=== PATIENT | male | born 1995 | race Caucasian/White ===

== ENCOUNTER 2020-02-10 19:36 | Emergency (ER) | payer BC, SELFPAY ==
[2020-02-10 19:37] VITALS: BP 119/82; PULSE 84; RESP 16; TEMP 36.7; O2SAT 100
--- NOTE | 2020-02-10 19:58 | ED.GENADULT ---
HPI - General Adult General Chief complaint: Unspecified Stated complaint: Bug in Ear Time Seen by Provider: 02/10/20 19:58 History of Present Illness HPI narrative: Patient is a 25-year-old male who was outside grilling when a bug flew into his ear. Sudden onset pain. Feels like it is flapping his ear. Mild difficulty hearing due to this. Related Data Allergies Allergy/AdvReac Type Severity Reaction Status Date / Time No Known Allergies Allergy Unverified 08/07/17 19:35 Review of Systems ENT: Denies dizziness Comments: Right ear pain and muffled hearing. [facility] Past Medical History Medical History (Updated 02/10/20 @ 20:01 by Tesfaye Rodriguez MD) Healthy adult male Surgical History Surgical History (Updated 02/10/20 @ 19:59 by Tesfaye Rodriguez MD) No history of previous surgery Exam Narrative: Exam Narrative: GENERAL: Well-appearing, well-nourished, and in no acute distress. HEAD: Normocephalic, atraumatic. ENT: Normal left TM with small amount of cerumen in the ear canal. Right ear canal with a insect in the middle of it. After removal eardrum is erythematous and irritated but not perforated. Ear canal free of cerumen. NEURO: Alert and oriented x3. PSYCH: Normal mood and affect. Course Vital Signs Vital signs: Vital Signs Temperature 98.1 F 02/10/20 19:37 Pulse Rate 84 02/10/20 19:37 Respiratory Rate 16 02/10/20 19:37 Blood Pressure 119/82 02/10/20 19:37 Pulse Oximetry 100 02/10/20 19:37 Temperature 98.1 F 02/10/20 19:37 Pulse Rate 84 02/10/20 19:37 Respiratory Rate 16 02/10/20 19:37 Blood Pressure 119/82 02/10/20 19:37 Pulse Oximetry 100 02/10/20 19:37 Procedures FB Removal Ear Foreign Body #1: Foreign Body Removal Date: 02/10/20 Foreign Body Removal Time: 19:52 Location: ear canal (R) Foreign Body Suspected: insect TM intact pre-procedure: yes If Insect Suspected: ear canal instilled with other (normal saline) Foreign Body Removed: yes Foreign Body Removal Technique: irrigation Tympanic Membrane Intact Post Procedure: Yes Patient Tolerated Procedure: well Complications: none Medical Decision Making Vital Signs Vital Signs: Vital Signs Temperature 98.1 F 02/10/20 19:37 Pulse Rate 84 02/10/20 19:37 Respiratory Rate 16 02/10/20 19:37 Blood Pressure 119/82 02/10/20 19:37 Pulse Oximetry 100 02/10/20 19:37 Temperature 98.1 F 02/10/20 19:37 Pulse Rate 84 02/10/20 19:37 Respiratory Rate 16 02/10/20 19:37 Blood Pressure 119/82 02/10/20 19:37 Pulse Oximetry 100 02/10/20 19:37 Discharge Plan Discharge Clinical Impression: Ear foreign body Patient Disposition: Home, Self-Care Condition: Stable Instructions: Ear Foreign Body (ED) Additional Instructions: Return the ER if you cannot hear, you have increased pain, or you have uncontrolled dizziness with nausea and vomiting. Follow-up/Referrals: PHYSICIAN NOT ON STAFF,NONSTAFF [Primary Care Provider] - 1 Week
== END 2020-02-10 20:14 | disposition home or self-care (01) ==
PROVIDERS: Emergency Provider Emergency Medicine
DX: T16.1XXA Foreign body in right ear, initial encounter (principal)
CPT/HCPCS: 99282

== ENCOUNTER 2022-01-10 11:01 | Emergency (ER) | payer OTHER, SELFPAY ==
[2022-01-10 11:13] VITALS: BP 142/86; PULSE 68; RESP 20; TEMP 36.9; O2SAT 100
--- NOTE | 2022-01-10 11:17 | ED.URI ---
HPI - URI/Sore Throat General Chief Complaint: Upper Respiratory Infection Stated Complaint: BODY ACHES/CONGESTION Time Seen by Provider: 01/10/22 11:18 Source: patient and RN notes reviewed Mode of arrival: ambulatory Limitations: no limitations History of Present Illness HPI Narrative: 26-year-old male presents with concern for cough, sore throat, nasal congestion that started yesterday. He reports he wanted to make sure he stayed healthy because he just started a new job. He denies any known sick contacts. He denies fever, body aches, chills, sweats. He denies any [id number] interventions for his symptoms. He denies shortness of breath MD elicited complaint: cough and sore throat Related Data Allergies Allergy/AdvReac Type Severity Reaction Status Date / Time No Known Allergies Allergy Unverified 08/07/17 19:35 Review of Systems Review of Systems: CONSTITUTIONAL: Denies malaise, chills, sweats, or fever. EYES: Denies visual changes, redness, or discharge. ENT: Reports rhinorrhea, congestion, and sore throat. Denies sinus pain, otalgia CARDIOVASCULAR: Denies chest pain, palpitations, or edema. RESPIRATORY: Reports cough. Denies dyspnea. GASTROINTESTINAL: Denies abdominal pain, nausea, vomiting, diarrhea SKIN: Denies rash or itching. MUSCULOSKELETAL: Denies myalgia. NEUROLOGIC: Denies headache. All systems reviewed & are unremarkable except as noted in HPI and below PMFSH Past Medical History Medical History (Updated 01/10/22 @ 11:28 by Flavia Rashid NP) Healthy adult male Surgical History Surgical History (Updated 02/10/20 @ 19:59 by Tesfaye Rodriguez MD) No history of previous surgery Comments At time of signature, agree with nursing past medical, surgical, social and family history. There is no relevant family history pertinent to the presenting complaint Exam Narrative: GENERAL: Well-appearing, well-nourished, and in no acute distress. HEAD: Normocephalic EYES: PERRLA, conjunctivae clear ENT: Nares clear, clear discharge. Mucous membranes moist. TM pearly martinez with dull light reflex bilaterally; no tragal tenderness. Oropharynx erythematous without lesions. Tonsils not enlarged and without exudate, no drooling, no hoarseness, no trismus, uvula midline. NECK: Supple. No lymphadenopathy CHEST: Clear to auscultation, breath sounds equal. No wheezing, rhonchi, rales, or stridor. No respiratory distress, speaks in full sentences. HEART: Regular rate and rhythm. No murmur heard. SKIN: Warm, dry, no rash. NEURO: Alert and oriented x3. PSYCH: Normal mood and affect Course Course Emergency Course: Patient is aware of diagnosis, understands and agrees to treatment plan. Anticipatory guidance given. Patient agrees to follow-up as directed and is aware of reasons to seek care at the emergency department. Portions of this record may have been created with voice recognition software Level of Care: Express Care Visit Vital Signs Vital signs: Vital Signs Temperature 98.4 F 01/10/22 11:13 Pulse Rate 68 01/10/22 11:13 Respiratory Rate 20 01/10/22 11:13 Blood Pressure 142/86 H 01/10/22 11:13 Pulse Oximetry 100 01/10/22 11:13 Temperature 98.4 F 01/10/22 11:13 Pulse Rate 68 01/10/22 11:13 Respiratory Rate 20 01/10/22 11:13 Blood Pressure 142/86 H 01/10/22 11:13 Pulse Oximetry 100 01/10/22 11:13 Reviewed. MDM - URI/Sore Throat MDM Narrative Medical decision making narrative: Differential diagnosis considered: Godoy virus, strep pharyngitis, allergic rhinitis, upper respiratory tract infection, sinusitis, rhinosinusitis, nasopharyngitis. viral pharyngitis, otitis media, otitis externa, pneumonia, bronchitis, viral cough syndrome, viral syndrome, and influenza. Exam findings show no acute concerns or changes; patient is non-toxic appearing and is in no distress. Patient is appropriate for outpatient treatment and follow-up. Lab Data Attestation: I reviewed the pa
== END 2022-01-10 11:38 | disposition home or self-care (01) ==
PROVIDERS: Emergency Provider Nurse Practitioner
DX: J06.9 Acute upper respiratory infection, unspecified (principal)
CPT/HCPCS: 87081; 87804; 87880; 99213; G0463

== ENCOUNTER → 2023-04-16 08:34 | Outpatient (CLI) | payer OTHER, SELFPAY ==
--- NOTE | ~2023-04-16 | US_ITS ---
EXAMINATION: US scrotum doppler DATE: 04/16/2023 08:57 INDICATION: Other specified disorders of the male genital organs, left testicular pain TECHNIQUE: Testicular sonogram utilizing grayscale and Doppler COMPARISON: None. FINDINGS: The right testis measures 4.3 x 3.3 x 2.2 cm. The left testis measures 4.2 x 2.9 x 1.9 cm. There is normal vascular flow to both testes. The right epididymis contains an 5 mm cyst or spermatoc tylor. The left epididymis is normal with normal vascular flow. There is no varicocele or hydrocele. IMPRESSION: 1. No sonographic correlate for the patient's symptoms. Reviewed, dictated and finalized at location B. THETIC ASSISTANT
== END ==
PROVIDERS: PCP Family Medicine; Visit Provider Family Medicine
DX: N50.89 Other specified disorders of the male genital organs (principal)
CPT/HCPCS: 76870; 93976

== ENCOUNTER 2023-05-11 13:00 | Emergency (ER) | payer OTHER, SELFPAY ==
--- NOTE | 2023-05-11 13:02 | ED.URI ---
HPI - URI/Sore Throat General Chief Complaint: Upper Respiratory Infection Stated Complaint: SORE THROAT/CONGESTION/TIRED Time Seen by Provider: 05/11/23 13:20 Source: patient, RN notes reviewed and old records reviewed Mode of arrival: ambulatory Limitations: no limitations History of Present Illness HPI Narrative: 28-year-old male presents to the [facility] with complaints of a scratchy throat, hoarse voice fatigue and congestion for 2 days. Denies fevers, denies pain. No treatment prior to arrival Onset (ago): day(s) (2) Treatments prior to arrival: none Related Data Allergies Allergy/AdvReac Type Severity Reaction Status Date / Time No Known Allergies Allergy Unverified 05/11/23 13:11 Review of Systems Review of Systems: All systems reviewed & are unremarkable except as noted in HPI and below Constitutional: Constitutional: Reports as per HPI and Reports fatigue Eyes: Eyes: Reports no additional eye complaints ENT: Reports as per HPI Cardiovascular: Cardiovascular: Reports no additional cardiovascular complaints, Denies chest pain and Denies dyspnea Respiratory: Respiratory: Reports no additional respiratory complaints, Denies chest congestion, Denies cough and Denies dyspnea Gastrointestinal: Gastrointestinal: Reports no additional gastrointestinal complaints, Denies abdominal pain, Denies nausea and Denies vomiting Musculoskeletal: Musculoskeletal: Reports no additional musculoskeletal complaints Integumentary/Breasts: Skin/Breast: Reports system reviewed and no additional complaints, except as docu Neurologic: Reports system reviewed and no additional complaints, except as documented Psychiatric: Psychiatric: Reports no additional psychiatric complaints Allergic/Immunologic: Allergic/Immunologic: Reports no additional allergic/immunologic complaints [facility] Past Medical History Medical History Healthy adult male Surgical History Surgical History No history of previous surgery Family History Family History Grandparent Biventricular cardiac pacemaker in situ Social History Social History Social History: Fiance Smoking status: Current some day smoker (vaping) Second hand tobacco smoke exposure: No Alcohol intake: current Drinks per week: 3 Substance use: current Substance use type: marijuana Last use: Pt uses edibles Lack of Transportation: No Lack of Food: Never True Current Housing: I Have Housing Concerned About Future Housing: No Difficulty Paying Gas/Electric Bills: No Difficulty Paying for Meds: No Currently Unemployed: No Education: Master's Degree or Higher Difficulty w/ Childcare or Family Care: No Living arrangements: with family Occupation/Education: occupation Additional occupation/education comments: [employer] Gender identity (if verbalized by the patient): Male Sexual Orientation (if Verbalized by the Patient): Straight or Heterosexual Comments At the time of my signature, I reviewed and agree with the nursing past medical, surgical, social, and family history. There is no relevant family history pertinent to the patient complaint. Exam Const: General: cooperative, healthy appearing, comfortable, no acute distress, well developed, alert and well nourished Nutritional Appearance: well nourished Orientation/consciousness: patient oriented x3 Limitations: no limitations HENMT: Head: normal to inspection Ears: hearing grossly normal bilaterally, external ears normal, TM's normal bilaterally, EAC's normal, mastoids normal and no periauricular adenopathy Face/Nose/Sinus: Normal external nose present, Normal nares present, Normal nasal mucous membranes and turbinates present, normal facial exam and face symmetric Face an
[2023-05-11 13:11] VITALS: BP 141/98; PULSE 77; RESP 16; TEMP 36.7; O2SAT 100
[2023-05-11 13:12] VITALS: BP 141/98; PULSE 77; RESP 16; TEMP 36.7; O2SAT 100
== END 2023-05-11 13:37 | disposition home or self-care (01) ==
PROVIDERS: Emergency Provider Nurse Practitioner; PCP Family Medicine
DX: J06.9 Acute upper respiratory infection, unspecified (principal); Z20.822 Contact with and (suspected) exposure to COVID-19; F17.290 Nicotine dependence, other tobacco product, uncomplicated
CPT/HCPCS: 87081; 87426; 87804; 87880; 99213; C9803; G0463

== ENCOUNTER 2023-12-13 19:56 | Emergency (ER) | payer OTHER, SELFPAY ==
--- NOTE | ~2023-12-13 | CT_ITS ---
CT abdomen pelvis w con Ordering provider: Lorenzo Chavarria MD History: 28 years Male with . RUQ abdominal pain . Comparison: None. Technique: CT abdomen and pelvis with IV and without oral contrast. Automated exposure control and it erative reconstruction technique were employed. The dose-length product was 344.98 mGy-cm. 100 mL Omn ipaque 350 was given IV. Findings: VISUALIZED LOWER CHEST: Normal. UPPER ABDOMINAL ORGANS: Liver: Normal. Gallbladder: Normal. Spleen: Normal. Stomach/duodenum: Normal. Pancreas: Normal. Adrenals: Normal. Kidneys: Normal. PELVIC ORGANS: The bladder is slightly underfilled with thickened wall. BOWEL AND MESENTERY: Colon: No evidence of diverticulitis. Normal appendix. Small Bowel: Normal. No obstruction. Peritoneum/mesentery: No free air or free fluid. No mesenteric lymphadenopathy. RETROPERITONEUM: Normal aorta. No retroperitoneal lymphadenopathy. MUSCULOSKELETAL: Superficial soft tissues: The superficial soft tissues are normal. Bones: Normal spine. IMPRESSION: 1. No acute abdominal process with no evidence of appendicitis, diverticulitis or intestinal obstruc tion. Reviewed, dictated and finalized at location A. IMPRESSION: 1. No acute abdominal process with no evidence of appendicitis, diverticulitis or intestinal obstruction.
[2023-12-13 20:08] VITALS: BP 148/90; PULSE 83; RESP 16; TEMP 37.1; O2SAT 100
--- NOTE | 2023-12-13 20:28 | ED.ABDPAIN ---
HPI - Abdominal Pain General Chief Complaint: Abdominal Pain Stated Complaint: abdominal pain Time Seen by Provider: 12/13/23 20:02 Source: patient Mode of arrival: ambulatory Limitations: no limitations History of Present Illness HPI narrative: This is a 28-year-old male, with history of ADHD, presents to the emergency department complaining of sharp right-sided abdominal pain since this morning. Patient rates the pain 7/10 in denies radiation. It is aggravated by movement and deep breathing. He denies any known alleviating factors, nausea, vomiting, diarrhea or bleeding of any type. He has no other complaints at this time. Related Data Allergies Allergy/AdvReac Type Severity Reaction Status Date / Time No Known Allergies Allergy Unverified 11/30/23 08:20 Review of Systems Review of Systems: All systems reviewed & are unremarkable except as noted in HPI and below PMFSH Past Medical History Medical History ADD (attention deficit disorder) without hyperactivity Healthy adult male Surgical History Surgical History No history of previous surgery Family History Family History Grandparent Biventricular cardiac pacemaker in situ Social History Social History Social History: Fiance Smoking status: Former smoker (vaping) Second hand tobacco smoke exposure: No Alcohol intake: current Drinks per week: 3 Substance use: current Substance use type: marijuana Last use: Pt uses edibles Lack of Transportation: No Lack of Food: Never True Current Housing: I Have Housing Concerned About Future Housing: No Difficulty Paying Gas/Electric Bills: No Difficulty Paying for Meds: No Currently Unemployed: No Education: Master's Degree or Higher Difficulty w/ Childcare or Family Care: No Living arrangements: with family Occupation/Education: occupation 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 HEAD: Normocephalic, atraumatic. EYES: PERRLA and EOMI. CHEST: Clear to auscultation. No respiratory distress. No wheezes rales or rhonchi HEART: Regular rate and rhythm. No murmur heard. Normal peripheral pulses. ABDOMEN: Soft, tender to palpation in the right upper quadrant and right periumbilical region, with passive guarding though no actual guarding or rebound, nondistended, normal active bowel sounds. No CVA tenderness EXTREMITIES: Normal range of motion. No edema. SKIN: Warm, dry, no rash. NEURO: Alert and oriented x3. No focal deficit. Moving all 4 limbs spontaneously PSYCH: Normal mood and affect. Course Course Emergency Course: 22:30 - CBC unremarkable. Chemistries within normal limits, including a normal lipase. UA not concerning for urinary tract infection. CT abdomen pelvis not concerning for acute intra-abdominal process. Will discharge with pain and nausea medications with recommendation for primary care follow-up and potential general surgery follow-up. I discussed the findings and recommendations with the patient. Discussed return and emergency precautions including signs/symptoms of acute abdomen intractable vomiting. The patient voiced understanding and agreement with the plan. All questions answered to his satisfaction. Vital Signs Vital signs: Vital Signs Temperature 98.7 F 12/13/23 20:08 Pulse Rate 83 12/13/23 20:08 Respiratory Rate 16 12/13/23 20:08 Blood Pressure 148/90 H 12/13/23 20:08 Pulse Oximetry 100 12/13/23 20:08 Oxygen Delivery Room Air 12/13/23 20:08 Temperature 97.6 F 12/13/23 21:55
[2023-12-13 20:30] LABS: Basophils Percent Auto 0.4 % (0.2-1.2); Eosinophils Absolute Auto 0.5 K/mm3 (0-0.3); Eosinophils Percent Auto 4.7 % (0-4.4); Hematocrit 40.8 % (42.0-52.0); Hemoglobin 14.2 g/dL (14.0-18.0); Immature Granulocyte Absolute 0.02 K/mm3 (0.00-0.031); Immature Granulocyte Percent A 0.2 % (0-0.5); Lymphocytes Absolute Auto 2.57 K/mm3 (0.9-3.2); Lymphocytes Percent Auto 26.7 % (18.3-44.2); Mean Corpuscular HGB Conc 34.8 g/dl (32-36); Mean Corpuscular Hemoglobin 31.6 pg (26-34); Mean Corpuscular Volume 90.7 fl (80-100); Mean Platelet Volume 9.1 fl (7.4-10.4); Monocytes Absolute Auto 0.7 K/mm3 (0.1-0.6); Monocytes Percent Auto 7.1 % (2.6-8.5); Neutrophils Absolute Auto 5.9 K/mm3 (1.3-6.7); Neutrophils Percent Auto 60.9 % (45.5-73.1); Platelet Count Result 253 k/mm3 (150-375); Red Cell Distribution Width 11.8 % (11.5-14.5); White Blood Count 9.6 K/mm3 (4.5-10.0)
[2023-12-13 20:43] LABS: Alanine Aminotransferase 26 U/L (6-50); Albumin Level 4.9 g/dL (3.5-5.1); Alkaline Phosphatase 47 U/L (38-126); Anion Gap 10 mmol/L (4-12); Aspartate Amino Transferase 25 U/L (17-59); Bilirubin,Total 0.5 mg/dL (0.2-1.3); Blood Urea Nitrogen 16 mg/dL (9-20); Calcium 9.3 mg/dL (8.4-10.2); Carbon Dioxide 30 mmol/L (22-30); Chloride 97 mmol/L (98-107); Estimated CRCL calculation 93 ml/min; Estimated Glomerular Filt Rate > 60; Glucose 91 mg/dL (65-110); Lipase 64 U/L (23-300); Potassium 3.7 mmol/L (3.4-5.0); Sodium 137 mmol/L (137-145)
[2023-12-13] MEDS: SODIUM CHLORIDE 0.9% IV 2,000 ML 999 ML IV CONT (20:45)
[2023-12-13] MEDS: MORPHINE SULFATE (*CRX) 4 MG/ML INJ IV PUSH (20:48)
[2023-12-13] MEDS: ONDANSETRON INJ 4 MG/2 ML VIAL IV PUSH (20:48)
[2023-12-13 21:04] LABS: Add Urine Microscopic? NO; Appearance Urine Clear (Clear); Bilirubin Urine Negative (Negative); Blood Urine Negative (Negative); Color Urine Yellow (Yellow); Glucose Urine UA Negative (Negative); Ketones Urine Negative (Negative); Leukocyte Esterase Ur Negative LEU/UL (Negative); Nitrate Urine Negative (Negative); Protein Urine Negative (Negative); Specific Grav Ur 1.025 (1.001-1.035)
[2023-12-13 21:55] VITALS: BP 130/77; PULSE 87; RESP 16; TEMP 36.4; O2SAT 100
[2023-12-13 22:57] VITALS: BP 138/76; PULSE 89; RESP 18; TEMP 36.3; O2SAT 98
--- NOTE | 2023-12-24 21:53 | PC.NURSE ---
Late Note Entry: Pt NS stopped at 2246 on 12/13/23.
== END 2023-12-13 22:59 | disposition home or self-care (01) ==
PROVIDERS: Emergency Provider Preventive Medicine Aerospace Medicine; PCP Family Medicine
DX: R10.11 Right upper quadrant pain (principal); F90.9 Attention-deficit hyperactivity disorder, unspecified type; Z87.891 Personal history of nicotine dependence
CPT/HCPCS: 36415; 74177; 80053; 81003; 83690; 85025; 96361; 96374; 96375; 99284; J2270; J2405; J7030; Q9967

== ENCOUNTER 2024-02-14 19:10 | Emergency (ER) | payer OTHER, SELFPAY ==
--- NOTE | ~2024-02-14 | XR_ITS ---
HISTORY: laceration to leg COMPARISON: None TECHNIQUE: 3 views of the left lower leg were performed FINDINGS: No acute or subacute fracture, erosion, lytic or sclerotic lesion. Joint spaces are preserved and alignment is normal. Soft tissues are unremarkable without foreign body or significant calcification. Normal mineralization. IMPRESSION: Unremarkable radiographic evaluation of the left lower leg, as detailed above. Reviewed, dictated and finalized at location A. IMPRESSION: Unremarkable radiographic evaluation of the left lower leg, as det ashli above.
[2024-02-14 19:17] VITALS: BP 138/92; PULSE 97; RESP 16; TEMP 36.3; O2SAT 97
--- NOTE | 2024-02-14 19:53 | ED.WOUNDLAC ---
HPI - Wound/Laceration General Chief Complaint: Wound/Laceration Stated Complaint: laceration Time Seen by Provider: 02/14/24 19:34 History of Present Illness HPI narrative: Patient is a 29-year-old male who presents to the ER with a approximately 1 1/2 inch linear laceration to his anterior left lower extremity. He reports he was moving a dryer earlier today and the a metal part on the back of it cut into his leg. Patient is unsure whether not he is up-to-date on his tetanus vaccine. His reports she thought she could see the bone when he 1st cut his leg. Patient denies excessive pain, chest pain, shortness of breath, other signs of illness. Related Data Allergies Allergy/AdvReac Type Severity Reaction Status Date / Time No Known Allergies Allergy Unverified 12/18/23 08:35 Review of Systems Review of Systems: All systems reviewed & are unremarkable except as noted in HPI and below PMFSH Past Medical History Medical History ADD (attention deficit disorder) without hyperactivity Healthy adult male Swelling, scrotum Surgical History Surgical History No history of previous surgery Family History Family History Grandparent Biventricular cardiac pacemaker in situ Social History Social History Social History: Smoking status: Former smoker (vaping) Tobacco type: e-cigarettes/vaping Second hand tobacco smoke exposure: No Smoking end date: 11/30/23 Alcohol intake: current Drinks per week: 15 Substance use: current Substance use type: marijuana Last use: Pt uses edibles Do You Feel Safe in your Home?: Yes Lack of Transportation: No Lack of Food: Never True Current Housing: I Have Housing Concerned About Future Housing: No Difficulty Paying Gas/Electric Bills: No Difficulty Paying for Meds: No Currently Unemployed: No Education: Master's Degree or Higher Difficulty w/ Childcare or Family Care: No Living arrangements: with family Occupation/Education: occupation Additional occupation/education comments: [employer] Gender identity (if verbalized by the patient): Male Sexual Orientation (if Verbalized by the Patient): Straight or Heterosexual Exam Narrative: GENERAL: Well appearing, well-nourished, non-toxic, in no acute distress. HEAD: Normocephalic, atraumatic. NECK: Supple. No adenopathy, no masses. RESPIRATORY: Airway patent, respirations nonlabored. Clear to auscultation bilaterally, no rales, rhonchi, wheezing. CARDIOVASCULAR: Regular rate and rhythm without murmurs, rubs, or gallops. Peripheral pulses 2+ and equal bilaterally. ABDOMINAL: Soft, nontender, nondistended, no hepatosplenomegaly. Normoactive BS. MUSCULOSKELETAL: Moves all extremities. Strength/ROM intact without gross deformities. SKIN: Warm, dry, normal color. No rashes. Pt has an approximately 1 1/2 inch linear laceration on the anterior portion of his LLE. NEURO: A&O X3. Speech clear. Cranial nerves II-XII grossly intact. Steady gait. No ataxic movements. PSYCHIATRIC: Appropriate mood and affect. Normal interaction. Course Vital Signs Vital signs: Vital Signs Temperature 36.3 C L 02/14/24 19:17 Pulse Rate 97 02/14/24 19:17 Respiratory Rate 16 02/14/24 19:17 Blood Pressure 138/92 H 02/14/24 19:17 Pulse Oximetry 97 02/14/24 19:17 Oxygen Delivery Room Air 02/14/24 19:17 Temperature 36.3 C L 02/14/24 19:17 Pulse Rate 97 02/14/24 19:17 Respiratory Rate 16 02/14/24 19:17 Blood Pressure 138/92 H 02/14/24 19:17 Pulse Oximetry 97 02/14/24 19:17 Oxygen Delivery Room Air 02/14/24 19:17 MDM - Wound/Laceration MDM Narrative Medical decision making narrative: Patient is a 29-year-old male
[2024-02-14] MEDS: TETANUS,DIPHTHERIA,AC PERTUSSIS ADULT (0.5 ML) BOOSTRIX IM (20:40)
[2024-02-14 20:56] VITALS: BP 138/76; PULSE 76; RESP 16; TEMP 36.8; O2SAT 98
== END 2024-02-14 22:12 | disposition home or self-care (01) ==
PROVIDERS: Emergency Provider Registered Nurse; PCP Family Medicine
DX: S81.812A Laceration without foreign body, left lower leg, initial encounter (principal); Z23 Encounter for immunization; Z87.891 Personal history of nicotine dependence; W26.8XXA Contact with other sharp object(s), not elsewhere classified, initial encounter
CPT/HCPCS: 12001; 73590; 90471; 90715; 99283

== ENCOUNTER 2024-06-02 13:19 | Emergency (ER) | payer OTHER, SELFPAY ==
[2024-06-02 13:48] VITALS: BP 167/89; PULSE 119; RESP 18; TEMP 37.4; O2SAT 99
--- NOTE | 2024-06-02 14:00 | ED.URI ---
HPI - URI/Sore Throat General Chief Complaint: Upper Respiratory Infection Stated Complaint: Chest Pain/Cough Source: patient and RN notes reviewed Mode of arrival: ambulatory Limitations: no limitations History of Present Illness HPI Narrative: 29 y/o male presented for c/o cough, sore throat, body aches, fever. Onset 2 days. Symptoms started while in [place], returned yesterday. Reports exposure to Flu. Denies sob, wheezing, n/v/d. MD elicited complaint: cough Related Data Allergies Allergy/AdvReac Type Severity Reaction Status Date / Time No Known Allergies Allergy Unverified 06/02/24 13:56 Review of Systems Review of Systems: CONSTITUTIONAL: Endorses malaise, chills, sweats, fever EYES: Denies visual changes, redness, or discharge ENT: Reports rhinorrhea, congestion, otalgia, sore throat CARDIOVASCULAR: Denies chest pain, palpitations, edema RESPIRATORY: Reports cough, post nasal drainage. Denies dyspnea GASTROINTESTINAL: Denies abdominal pain, nausea, vomiting, diarrhea SKIN: Denies rash or itching MUSCULOSKELETAL: Endorses myalgia NEUROLOGIC: Reports headache PMFSH Past Medical History Medical History ADD (attention deficit disorder) without hyperactivity Swelling, scrotum Healthy adult male Surgical History Surgical History No history of previous surgery Family History Family History Grandparent Biventricular cardiac pacemaker in situ Social History Social History Social History: Smoking status: Former smoker (vaping) Tobacco type: e-cigarettes/vaping Second hand tobacco smoke exposure: No Smoking end date: 11/30/23 Alcohol intake: current Drinks per week: 15 Substance use: current Substance use type: marijuana Last use: Pt uses edibles Do You Feel Safe in your Home?: Yes Lack of Transportation: No Lack of Food: Never True Current Housing: I Have Housing Concerned About Future Housing: No Difficulty Paying Gas/Electric Bills: No Difficulty Paying for Meds: No Currently Unemployed: No Education: Master's Degree or Higher Difficulty w/ Childcare or Family Care: No Living arrangements: with family Occupation/Education: occupation Additional occupation/education comments: [employer] Gender identity (if verbalized by the patient): Male Sexual Orientation (if Verbalized by the Patient): Straight or Heterosexual Exam Narrative: GENERAL: Ill-appearing, nontoxic no acute distress. EYES: PERRLA, conjunctivae clear ENT: Mucous membranes moist. Left TM pearly martinez with dull light reflex; right TM erythematous, bulging and intact; canal not erythematous, no drainage no tragal tenderness. Oropharynx erythematous without lesions or exudate, no drooling, no hoarseness, no trismus, uvula midline. No tripod positioning, muffled voice, soft palate or pharyngeal wall bulging NECK: Supple. No lymphadenopathy CHEST: Clear to auscultation, breath sounds equal. No wheezing, rhonchi, rales, or stridor. No respiratory distress, speaks in full sentences. HEART: Regular rate and rhythm. No murmur heard. SKIN: Warm, dry, no rash. NEURO: Alert and oriented x3. PSYCH: Normal mood and affect Course Course Emergency Course: Patient is aware of diagnosis, understands and agrees to treatment plan. Anticipatory guidance given. Patient agrees to follow-up as directed and is aware of reasons to seek care at the emergency department. Portions of this record may have been created with voice recognition software Level of Care: Express Care Visit Vital Signs Vital signs: Vital Signs Temperature 99.4 F 06/02/24 13:48 Pulse Rate 119 H 06/02/24 13:48 Respiratory Rate 18 06/02/24 13:48 Blood Pressure 167/89 H 06/02/24 13:48 Pulse Oximetry 99 06/02/24 13:48 Temperature 99.4 F 06/02/24 13:48 Pulse Rate 119 H 06/02/24 13:48 Respiratory Rate 18 06/02/24 13:48 Blood Pressure 167/89 H 06/02/24 13:48 Pulse Oximetry 99 06/02/24 13:48 reviewed MDM - URI/Sore Throat MDM Narrative Medical decision making narrative: Positive flu. Discussed physical exam findings. Advised supportive measures and signs/symptoms to go to the ER. Pt is appropriate for outpt treatment and f/u. Differential Diagnosis Differential diagnosis: Likely upper respiratory infection, sinusitis and viral infection Lab Data Labs: Lab Results 06/02/24 06/02/24 Range/Units 14:10 14:15 POC Influenza A Ag Positive (Negative) POC Influenza B Ag Negative (Negative) POC SARS CoV-2 Ag Negative (Negative) POC Grp A Strep Screen Negative (Negative) Discharge Plan Discharge Clinical Impression: Influenza Otitis media Qualifiers: Otitis media type: suppurative Chronicity: acute Laterality: right Recurrence: non-recurrent Spontaneous tympanic membrane rupture: without spontaneous rupture Qualified Code(s): H66.001 - Acute suppurative otitis media without spontaneous rupture of ear drum, right ear Patient Disposition: Home, Self-Care Condition: Stable Instructions: Influenza (ED), Ear Infection (ED) Additional Instructions: Influenza positive You should avoid crowds until you are fever free for 24 hours without the use of fever reducing medications, or the symptoms are improved Rest. Drink plenty of fluids. Tylenol 1000mg every 8 hours as needed for pain/fever Recommend Flonase spray and Zyrtec (or Claritin/Maryana) for sinus pressure/congestion over the counter Cough syrup may cause drowsiness; avoid driving or take it at night time. Follow up with your primary care provider as needed Go to the ER for worsening symptoms or concerns Patient Language: Austrian Prescriptions: New amoxicillin-pot clavulanate 875-125 mg tablet 1 tablet PO Q12H 7 Days Qty: 14 0RF No Action atomoxetine 18 mg capsule See Rx Instructions .ROUTE .COMPLEX Qty: 180 1RF Dose Instruction: TAKE 2 CAPSULES BY MOUTH IN THE MORNING Rx Instructions: TAKE 2 CAPSULES BY MOUTH IN THE MORNING Follow-up/Referrals: Patrick,Yuly Limon MD [Primary Care Provider] - Stand Alone Forms: Work/School Release IP Time of Disposition: 14:29
[2024-06-02 14:11] LABS: EDSTREPNEGPOS1 Negative (Negative)
[2024-06-02 14:18] LABS: EDCOVIDSCREEN Negative (Negative); EDINFLUASCREEN Positive (Negative); EDINFLUBSCREEN Negative (Negative)
== END 2024-06-02 14:36 | disposition home or self-care (01) ==
PROVIDERS: Emergency Provider Nurse Practitioner Family; PCP Family Medicine
DX: J10.1 Influenza due to other identified influenza virus with other respiratory manifestations (principal); Z20.822 Contact with and (suspected) exposure to COVID-19; Z87.891 Personal history of nicotine dependence; F12.90 Cannabis use, unspecified, uncomplicated
CPT/HCPCS: 87081; 87426; 87804; 87880; 99213; G0463